=== PATIENT | male | born 1960 | race Caucasian/White ===

== ENCOUNTER 2017-12-17 18:41 | Emergency (ER) | payer OTHER ==
[2017-12-17 19:46] VITALS: BP 118/83
--- NOTE | 2017-12-17 19:48 | ED Physician Documentation ---
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 Not actively bleeding now. Review of Systems Constitutional: denies: Fever, Chills GI: denies: Vomiting Skin: denies: Rash PD PAST MEDICAL HISTORY - Past Medical History Past Medical History: No - Past Surgical History Past Surgical History: Yes General: Hiatal hernia repair - Present Medications Home Medications: Ambulatory Orders Medication Instructions Recorded Confirmed Chlorhexidine Gluconate [Peridex] 15 ml MM ACHS #1 bottle 12/17/17 - Allergies Allergies/Adverse Reactions: Allergies Allergy/AdvReac Type Severity Reaction Status Date / Time No Known Drug Allergies Allergy Verified 12/17/17 19:07 - Social History Does the pt smoke?: No Smoking Status: Never smoker Does the pt drink ETOH?: Yes ETOH Use: Wine Does the pt have substance abuse?: No - Immunizations Immunizations are current?: Yes - POLST Patient has POLST: No PD ED PE NORMAL - Vitals Vital signs reviewed: Yes - General General: Alert and oriented X 3, No acute distress - HEENT HEENT: Other (Laceration to the left undersurface of the tongue. No bleeding. Muscle appears intact. Neuro and vascular are intact.) - Derm Derm: Warm and dry - Neuro Neuro: Alert and oriented X 3 Results - Vitals Vitals: Vital Signs - 24 hr 12/17/17 12/17/17 19:44 19:51 Temperature 36.7 C Heart Rate 72 Respiratory 15 Rate Blood Pressure 118/83 H O2 Saturation 98 Oxygen O2 Source Room air PD MEDICAL DECISION MAKING - ED course Complexity details: considered differential, d/w patient ED course: Patient with 2-1/2 cm laceration to the underside of the tongue. Did not appear to injure any important vessels. Normal movement. Neurologically intact. Will place on Peridex and allow this to heal by secondary intention. Does not appear to be suturable at this time. Tetanus shot is up-to-date. Patient counseled regarding signs and symptoms for which I believe and urgent re -evaluation would be necessary. Patient with good understanding of and agreement to plan and is comfortable going home at this time This document was made in part using voice recognition software. While efforts are made to proofread this document, sound alike and grammatical errors may occur. - Sepsis Event Vital Signs: Vital Signs - 24 hr 12/17/17 12/17/17 19:44 19:51 Temperature 36.7 C Heart Rate 72 Respiratory 15 Rate Blood Pressure 118/83 H O2 Saturation 98 Oxygen O2 Source Room air Departure - Departure Disposition: 01 Home, Self Care Clinical Impression: Tongue laceration Qualifiers: Encounter type: initial encounter Qualified Code(s): S01.512A - Laceration without foreign body of oral cavity, initial encounter Condition: Good Instructions: ED Laceration Mouth Follow-Up: Radha Aleman MD [Primary Care Provider] - Within 1 week Prescriptions: Chlorhexidine Gluconate [Peridex] 15 ml MM ACHS #1 bottle Comments: Return if you worsen. Keep the wound clean. Follow up with your doctor in 3-4 days for a wound check Discharge Date/Time: 12/17/17 19:51
== END 2017-12-17 19:51 | disposition home or self-care (01) ==
LOC: ED 18:41
DX: S01.512A Laceration without foreign body of oral cavity, initial encounter (principal); W29.8XXA Contact with other powered hand tools and household machinery, initial encounter; Y92.531 Health care provider office as the place of occurrence of the external cause
CPT/HCPCS: 99283